=== PATIENT | male | born 1970 | race Caucasian/White ===

== ENCOUNTER 2019-07-20 21:31 | Emergency (ER) | payer SELFPAY ==
[~2019-07-20] VITALS: Ht 180 cm; Wt 88.5 kg
[2019-07-20 22:20] LABS: BASOPHILS % (AUTO) 0 % (0-10); EOSINOPHILS # (AUTO) 0.3 10^3/uL (0.0-0.3); EOSINOPHILS % (AUTO) 4 % (0-10); HEMATOCRIT 45 % (40-54); HEMOGLOBIN 15.4 G/DL (13.3-17.7); LYMPHOCYTES % (AUTO) 39 % (12-44); MEAN CORPUSCULAR HEMOGLOBIN 29 PG (25-34); MEAN CORPUSCULAR HGB CONC 34 G/DL (32-36); MEAN CORPUSCULAR VOLUME 84 FL (80-99); MEAN PLATELET VOLUME 9.4 FL (7.4-10.4); MONOCYTES # (AUTO) 0.9 X 10^3 (0.0-1.0); MONOCYTES % (AUTO) 12 % (0-12); NEUTROPHILS # (AUTO) 3.6 X 10^3 (1.8-7.8); NEUTROPHILS % (AUTO) 46 % (42-75); PLATELET COUNT 283 10^3/uL (130-400); RED CELL DISTRIBUTION WIDTH 13.5 % (10.0-14.5); WHITE BLOOD COUNT 7.8 10^3/uL (4.3-11.0)
[2019-07-20 22:27] LABS: INR 0.9 (0.8-1.4); PROTHROMBIN TIME PATIENT 12.6 SEC (12.2-14.7)
[2019-07-20 22:35] LABS: ALANINE AMINOTRANSFERASE 32 U/L (0-55); ALBUMIN 4.1 GM/DL (3.2-4.5); ALKALINE PHOSPHATASE 68 U/L (40-136); BILIRUBIN,TOTAL 0.3 MG/DL (0.1-1.0); BUN/CREATININE RATIO 14; CARBON DIOXIDE 23 MMOL/L (21-32); CHLORIDE 108 MMOL/L (98-107); CREATININE SERUM 1.07 MG/DL (0.60-1.30); GFR ESTIMATED > 60; GLUCOSE 91 MG/DL (70-105); MAGNESIUM 1.9 MG/DL (1.6-2.4); POTASSIUM 3.8 MMOL/L (3.6-5.0); SODIUM 141 MMOL/L (135-145); TOTAL PROTEIN 7.2 GM/DL (6.4-8.2)
--- NOTE | 2019-07-20 22:42 | ED Chest Pain ---
General Chief Complaint: Chest Pain Stated Complaint: METALLIC TASTE, SOA, LOW BK PAIN, POSS HBP Source: patient Exam Limitations: no limitations History of Present Illness Date Seen by Provider: Jul 20, 2019 Time Seen by Provider: 22:20 Initial Comments Patient arrives the ER with his girlfriend and chief complaint that today since about 10 AM he has been experiencing some fleeting seconds long chest pains in his mediastinum worse on deep inspiration as well as some backache and headache. He's had occasional nonproductive cough. He denies any nausea sweats fevers or chills. He has no history of coronary disease. No history of trauma. No history of lung disease. He does have a history of a TIA on [facility] and is supposed to be on lisinopril and aspirin. He occasionally takes 30 mg of lisinopril accuse told. The last 2 days he has taken it and noted his blood pressure to be high which is what prompted him to start taking his medicines again. He does not take aspirin. Is not on any other medicines statins or blood thinners. He does not follow with a local physician. He is not short of breath. He smokes about a quarter pack cigarettes a day and chews about a quarter of a can of tobacco a day. He has a remote history 15 months ago of using stimulant illicit drugs such as methamphetamines or cocaine. Allergies and Home Medications Allergies Coded Allergies: Penicillins (Verified Allergy, Unknown, 07/20/19) Patient Home Medication List Home Medication List Reviewed: Yes Review of Systems Review of Systems Constitutional: No chills, No diaphoresis EENTM: No Blurred Vision, No Double Vision Respiratory: Denies Cough, Denies Shortness of Air Cardiovascular: See HPI, Chest Pain; Denies Edema, Denies Irregular Heart Rate, Denies Lightheadedness, Denies Palpitations, Denies Syncope Gastrointestinal: Denies Abdominal Pain, Denies Constipated, Denies Nausea Genitourinary: Denies Burning, Denies Drainage Musculoskeletal: back pain; No joint pain Skin: No pruritus, No rash Psychiatric/Neurological: Denies Anxiety, Denies Depressed All Other Systems Reviewed Negative Unless Noted: Yes Past Qwytsku-Uqiafu-Iqbtai Hx Patient Social History Alcohol Use: Denies Use Recreational Drug Use: No Smoking Status: Never a Smoker Recent Foreign Travel: No Contact w/Someone Who Travel: No Physical Exam Vital Signs Vital Signs - First Documented Capillary Refill : Height, Weight, BMI Height: '" Weight: lbs. oz. kg; BMI Method: General Appearance: No Apparent Distress, WD/WN HEENT: PERRL/EOMI, Pharynx Normal, Moist Mucous Membranes Neck: Full Range of Motion, Normal Inspection Respiratory: Lungs Clear, Normal Breath Sounds, No Accessory Muscle Use, No Respiratory Distress Cardiovascular: Regular Rate, Rhythm, No Edema, Normal Peripheral Pulses Gastrointestinal: Normal Bowel Sounds, No Organomegaly Extremity: Normal Capillary Refill, Normal Inspection, No Pedal Edema Neurologic/Psychiatric: Alert, Oriented x3 Skin: Normal Color, Warm/Dry Progress/Results/Core Measures Results/Orders Lab Results Laboratory Tests Test 07/20/19 22:07 07/20/19 22:53 07/21/19 00:14 Range/Units White Blood Count 7.8 4.3-11.0 10^3/uL Red Blood Count 5.41 4.35-5.85 10^6/uL Hemoglobin 15.4 13.3-17.7 G/DL Hematocrit 45 40-54 % Mean Corpuscular Volume 84 80-99 FL Mean Corpuscular Hemoglobin 29 25-34 PG Mean Corpuscular Hemoglobin Concent 34 32-36 G/DL Red Cell Distribution Width 13.5 10.0-14.5 % Platelet Count 283 130-400 10^3/uL Mean Platelet Volume 9.4 7.4-10.4 FL Neutrophils (%) (Auto) 46 42-75 % Lymphocytes (%) (Auto) 39 12-44 % Monocytes (%) (Auto) 12 0-12 % Eosinophils (%) (Auto) 4 0-10 % Basophils (%) (Auto) 0 0-10 % Neutrophils # (Auto) 3.6 1.8-7.8 X 10^3 Lymphocytes # (Auto) 3.0 1.0-4.0 X 10^3 Monocytes # (Auto) 0.9 0.0-1.0 X 10^3 Eosinophils # (Auto) 0.3 0.0-0.3 10^3/uL Basophils # (Auto) 0.0 0.0-0.1 10^3/uL Prothrombin Time 12.6 12.2-14.7 SEC INR Comment 0.9 0.8-1.4 Activated Partial Thromboplast Time 36 H 24-35 SEC Sodium Level 141 135-145 MMOL/L Potassium Level 3.8 3.6-5.0 MMOL/L Chloride Level 108 H 98-107 MMOL/L Carbon Dioxide Level 23 21-32 MMOL/L Anion Gap 10 5-14 MMOL/L Blood Urea Nitrogen 15 7-18 MG/DL Creatinine 1.07 0.60-1.30 MG/DL Estimat Glomerular Filtration Rate > 60 BUN/Creatinine Ratio 14 Glucose Level 91 70-105 MG/DL Calcium Level 9.0 8.5-10.1 MG/DL Corrected Calcium 8.9 8.5-10.1 MG/DL Magnesium Level 1.9 1.6-2.4 MG/DL Total Bilirubin 0.3 0.1-1.0 MG/DL Aspartate Amino Transf (AST/SGOT) 21 5-34 U/L Alanine Aminotransferase (ALT/SGPT) 32 0-55 U/L Alkaline Phosphatase 68 40-136 U/L Myoglobin 57.0 10.0-92.0 NG/ML Troponin I < 0.028 < 0.028 <0.028 NG/ML Total Protein 7.2 6.4-8.2 GM/DL Albumin 4.1 3.2-4.5 GM/DL Urine Color YELLOW Urine Clarity SL CLOUDY Urine pH 7.0 5-9 Urine Specific [place] 1.025 H 1.016-1.022 Urine Protein NEGATIVE NEGATIVE Urine Glucose (UA) NEGATIVE NEGATIVE Urine Ketones NEGATIVE NEGATIVE Urine Nitrite NEGATIVE NEGATIVE Urine Bilirubin NEGATIVE NEGATIVE Urine Urobilinogen 1.0 < = 1.0 MG/DL Urine Leukocyte Esterase NEGATIVE NEGATIVE Urine RBC (Auto) NEGATIVE NEGATIVE Urine RBC RARE /HPF Urine WBC RARE /HPF Urine Squamous Epithelial Cells NONE /HPF Urine Crystals PRESENT H /LPF Urine Amorphous Sediment MOD [place]MA PHOSPHATE H /LPF Urine Bacteria TRACE /HPF Urine Casts PRESENT /LPF Urine Granular Casts RARE /LPF Urine Mucus NEGATIVE /LPF Urine Culture Indicated NO Urine Opiates Screen NEGATIVE NEGATIVE Urine Oxycodone Screen NEGATIVE NEGATIVE Urine Methadone Screen NEGATIVE NEGATIVE Urine Propoxyphene Screen NEGATIVE NEGATIVE Urine Barbiturates Screen NEGATIVE NEGATIVE Ur Tricyclic Antidepressants Screen NEGATIVE NEGATIVE Urine Phencyclidine Screen NEGATIVE NEGATIVE Urine Amphetamines Screen NEGATIVE NEGATIVE Urine Methamphetamines Screen NEGATIVE NEGATIVE Urine Benzodiazepines Screen NEGATIVE NEGATIVE Urine Cocaine Screen NEGATIVE NEGATIVE Urine Cannabinoids Screen NEGATIVE NEGATIVE Micro Results Microbiology 07/20/19 Influenza Types A,B Antigen (ALCIDES) - Final, Complete My Orders Orders - MYRNA COOLEY Cbc With Automated Diff (07/20/19 22:11) Magnesium (07/20/19 22:11) Chest 1 View, Ap/Pa Only (07/20/19 22:11) Ekg Tracing (07/20/19 22:11) Comprehensive Metabolic Panel (07/20/19 22:11) Myoglobin Serum (07/20/19 22:11) Protime With Inr (07/20/19 22:11) Partial Thromboplastin Time (07/20/19 22:11) O2 (07/20/19 22:11) Monitor-Rhythm Ecg Trace Only (07/20/19 22:11) Lipid Panel (07/21/19 06:00) Ed Iv/Invasive Line Start (07/20/19 22:11) Troponin I (07/20/19 22:11) Aspirin Chewable Tablet (Baby Aspirin Ch (07/20/19 22:45) Ua Culture If Indicated (07/20/19 22:43) Drug Screen Stat (Urine) (07/20/19 22:43) Influenza A And B Antigens (07/20/19 22:43) Ketorolac Injection (Toradol Injection) (07/20/19 23:30) Troponin I (07/21/19 00:01) Medications Given in ED Current Medications Medications Dose Ordered Sig/Jhoan Route Start Time Stop Time Status Last Admin Dose Admin Aspirin 324 mg ONCE ONCE PO 07/20/19 22:45 07/20/19 22:46 DC 07/20/19 22:45 324 MG Ketorolac Tromethamine 30 mg ONCE ONCE IVP 07/20/19 23:30 07/20/19 23:31 DC 07/20/19 23:36 30 MG Vital Signs/I&O 07/20/19 07/20/19 21:47 21:47 Temp 36.7 Pulse 97 Resp 20 B/P (MAP) 165/110 (128) O2 Delivery Room Air Room Air Progress Progress Note #1: Time: 22:38 Progress Note He is not presently having any pain in his pain seems to be reproduced by direct palpation or direct inspiration so it is more likely pleuritic or chest wall in nature. However he does have a history of a TIA with are not it was from vasospasms from drugs or from atherosclerosis is unknown. He denies ever having had a coronary angiogram. We'll get a react workup. He's not having any pain now so we'll just give him aspirin to chew and swallow. His pain comes back with given the nitroglycerin. We'll get a urine drug screen to look for stimulants that may contribute to pain. If his first troponin is negative we'll trial some ketorolac which would help with his headache as well as his chest wall pain/costochondritis. Chest x-ray would rule out a pneumonia or pneumothorax. He is not having any wheezing so bronchospasms unlikely. His oxygenation is fine and he is not having any subjective shortness of breath. He does not widened mediastinum and a AAA is unlikely. Well score for pulmonary embolism: 0.0 points; Low risk group: 1.3% chance of PE in an ED population. Perc criteria: 0 criteria; No need for further workup, as <2% chance of PE. Progress Note #2: Time: 23:29 Progress Note Initial labs, EKG, chest x-ray unrevealing. We'll give the patient some Toradol for his costochondritis versus pleurisy and headache as well as low back pain. We will obtain a two-hour delta troponin at midnight. His chest pains are fleeting, reproducible and started 10 AM so they're less likely to be related to angina. Initial ECG Impression Date: Jul 20, 2019 Initial ECG Impression Time: 22:16 Initial ECG Rate: 81 Initial ECG Rhythm: Normal Sinus Initial ECG Intervals: Normal Initial ECG Impression: Normal Initial ECG Comparisson: No Previous ECG Available Comment Left ventricular hypertrophy, normal sinus rhythm without ST elevation or depression. Diagnostic Imaging Diagonstic Imaging: Xray Plain Films/CT/US/NM/MRI: chest (1v) Comments No acute cardiopulmonary process on one view chest x-ray. Reviewed: Reviewed by Me Departure Impression Primary Impression: Chest wall pain Disposition: 01 HOME, SELF-CARE Condition: Stable Departure-Patient Inst. Decision time for Depature: 00:47 Referrals: NO,LOCAL PHYSICIAN (PCP) Primary Care Physician Patient Instructions: Chest Pain That Is Not Caused by the Heart (DC), LOCAL PHYSICIAN LIST Add. Discharge Instructions: Naproxen 500 mg twice a day for the next 1-2 weeks until your pain goes away. Follow-up with cardiology by calling for an appointment in the morning. Establish care with a primary care doctor. All discharge instructions reviewed with patient and/or family. Voiced understanding. Scripts Naproxen (Naprosyn) 500 Mg Tablet 500 MG PO BID, #30 TAB 0 Refills Prov: MYRNA COOLEY 07/21/19 MYRNA COOLEY Jul 20, 2019 22:41
[2019-07-20] MEDS ORDERED: ASPIRIN 81 MG CHEW (CHILDREN'S ASA) PO ONE (22:45)
[2019-07-20 22:57] LABS: BILIRUBIN,URINE NEGATIVE (NEGATIVE); COLOR,URINE YELLOW; GLUCOSE, URINE (UA) NEGATIVE (NEGATIVE); KETONES,URINE NEGATIVE (NEGATIVE); LEUKOCYTE ESTERASE ,URINE NEGATIVE (NEGATIVE); NITRITE,URINE NEGATIVE (NEGATIVE); PROTEIN,URINE NEGATIVE (NEGATIVE)
[2019-07-20 23:02] LABS: CLARITY,URINE SL CLOUDY
[2019-07-20 23:05] LABS: AMORPHOUS SEDIMENT,UR MOD AMOR PHOSPHATE /LPF; BACTERIA,URINE TRACE /HPF; GRANULAR CASTS,URINE RARE /LPF; RBC,URINE RARE /HPF; WBC,URINE RARE /HPF
[2019-07-20 23:07] LABS: AMPHETAMINE SCREEN, URINE NEGATIVE (NEGATIVE); BARBITURATE SCREEN URINE NEGATIVE (NEGATIVE); BENZODIAZEPINES SCREEN URINE NEGATIVE (NEGATIVE); CANNABINOID SCREEN, URINE NEGATIVE (NEGATIVE); COCAINE SCREEN URINE NEGATIVE (NEGATIVE); METHADONE STAT NEGATIVE (NEGATIVE); METHAMPHETAMINE SCREEN URINE S NEGATIVE (NEGATIVE); OPIATE SCREEN URINE NEGATIVE (NEGATIVE); OXYCODONE STAT NEGATIVE (NEGATIVE); PROPOXYPHENE STAT NEGATIVE (NEGATIVE); TRICYCLIC ANTIDEPRESSANTS SCRE NEGATIVE (NEGATIVE)
[2019-07-20] MEDS ORDERED: KETOROLAC 30 MG/ML VIAL IVP ONE (23:30)
[2019-07-21] MEDS ORDERED: NAPR-1071 PO (00:51)
[2019-07-21 01:07] VITALS: BP 166/100
--- NOTE | 2019-07-21 07:05 | Diagnostic Imaging Report ---
EXAMINATION: Chest radiograph, portable AP view. DATE: 07/20/2019 10:33 PM hours. INDICATION: 49-year-old male, chest pain. COMPARISON: None. FINDINGS: Heart size and mediastinal contours are unremarkable. There is no identified pneumothorax. There is no large pleural effusion. There is no identified focal airspace consolidation. IMPRESSION: No identified acute cardiopulmonary abnormality. Dictated by: Dictated on workstation # [id number]
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
--- OUTSIDE RECORDS SUMMARY | 2019-07-28 22:15 | XMS REPORT ---
Author Author ZACH BLACKWELL Organization Unknown Address Unknown Phone Unavailable Care Team Providers Care Docketing Specialist Name Role Phone UNASSIGNED DOCTOR MD MEGAN DOCTOR PP [phone] Reason For Visit Reason for Visit from 01/05/2017 2:00 PM:* Pt Stated Reason for Adm : HTN, right side numbness Chief Complaint RT SIDE WEAKNESS Social History Social History from 01/06/2017 10:07 AM:* Tobacco Use? : Current Everyday Smoker Social History from 01/05/2017 6:40 PM:* Tobacco Use? : Current Everyday Smoker Social History from 01/05/2017 2:00 PM:* Tobacco Use? : Current Everyday Smoker Functional Status Functional Status from 01/06/2017 8:48 AM:* LOC : Alert * Oriented To : Person,Place,Time,Event * Weight Bearing Status : Full * Assist Level : Independent * # Assists : Independent Functional Status from 01/06/2017 8:28 AM:* # Assists : Independent Functional Status from 01/05/2017 8:30 PM:* LOC : Alert * Oriented To : Person,Place,Time,Event * Weight Bearing Status : Full * Assist Level : Partial * # Assists : 1 Functional Status from 01/05/2017 2:00 PM:* Weight Bearing Status : Full * Assist Level : Partial * # Assists : 1 Vital Signs Hospital Vital Signs from 01/06/2017 10:43 AM:* Height : 6/0 ft,in * Temperature : 96.8 F * Pulse : 52 * Respirations : 20 * BP : 138/84 Hospital Vital Signs from 01/06/2017 10:26 AM:* Height : 6/0 ft,in * Temperature : 95.8 F * Pulse : 53 * Respirations : 20 * BP : 182/96 Hospital Vital Signs from 01/06/2017 8:48 AM:* Heart Rate : 53 Hospital Vital Signs from 01/06/2017 7:20 AM:* Height : 6/0 ft,in * Temperature : 97.4 F * Pulse : 56 * Respirations : 20 * BP : 130/84 Hospital Vital Signs from 01/06/2017 3:26 AM:* Weight : 80.7/ kg * Height : 6/0 ft,in * Temperature : 97.4 F * Pulse : 51 * Respirations : 20 * BP : 141/76 Hospital Vital Signs from 01/05/2017 10:43 PM:* Height : 6/0 ft,in * Temperature : 97.7 F * Pulse : 51 * Respirations : 20 * BP : 120/75 Hospital Vital Signs from 01/05/2017 8:30 PM:* Heart Rate : 46 Hospital Vital Signs from 01/05/2017 6:33 PM:* Height : 6/0 ft,in * Temperature : 97.0 F * Pulse : 60 * Respirations : 20 * BP : 129/75 Hospital Vital Signs from 01/05/2017 5:00 PM:* Heart Rate : 66 * Resp Rate : 18 * Systolic BP (mmHg) : 103 * Diastolic BP (mmHg) : 72 * Mean BP (mmHg) : 85 * O2 Saturation (%) : 97 Hospital Vital Signs from 01/05/2017 4:00 PM:* Heart Rate : 73 * Systolic BP (mmHg) : 137 * Diastolic BP (mmHg) : 90 * O2 Saturation (%) : 94 Hospital Vital Signs from 01/05/2017 3:15 PM:* Heart Rate : 64 * Resp Rate : 19 * O2 Saturation (%) : 97 Hospital Vital Signs from 01/05/2017 3:00 PM:* Temp : 97.4 * Heart Rate : 66 * Resp Rate : 18 * Systolic BP (mmHg) : 144 * Diastolic BP (mmHg) : 111 * Mean BP (mmHg) : 131 * O2 Saturation (%) : 98 Hospital Vital Signs from 01/05/2017 2:45 PM:* Heart Rate : 52 * Resp Rate : 11 * Systolic BP (mmHg) : 144 * Diastolic BP (mmHg) : 100 * Mean BP (mmHg) : 120 * O2 Saturation (%) : 99 Hospital Vital Signs from 01/05/2017 2:30 PM:* Heart Rate : 57 * Resp Rate : 7 * O2 Saturation (%) : 98 Hospital Vital Signs from 01/05/2017 2:15 PM:* Heart Rate : 49 * Resp Rate : 18 * Systolic BP (mmHg) : 163 * Diastolic BP (mmHg) : 102 * O2 Saturation (%) : 97 Hospital Vital Signs from 01/05/2017 2:00 PM:* Weight : 79.0/ kg * Height : 6/0 ft,in * Heart Rate : 57 * Resp Rate : 34 * Systolic BP (mmHg) : 165 * Diastolic BP (mmHg) : 101 * O2 Saturation (%) : 97 Hospital Vital Signs from 01/05/2017 1:55 PM:* Temp : 97.4 * Heart Rate : 53 * Resp Rate : 11 * Systolic BP (mmHg) : 152 * Diastolic BP (mmHg) : 97 * O2 Saturation (%) : 97 Results Chemistry from 01/06/2017 4:32 AMSODIUM 139 MMOL/L (136-145 MMOL/L) POTASSIUM 4.1 MMOL/L (3.5-5.1 MMOL/L) CHLORIDE 106 MMOL/L (98-107 MMOL/L) TCO2 26.7 MMOL/L (21.0-32.0 MMOL/L) *ANION GAP 6.3 MMOL/L L (8.0-16.0 MMOL/L) BUN 18 MG/DL (7-18 MG/DL) CREATININE 0.96 MG/DL (0.70-1.30 MG/DL) *BUN/CREATININE RATIO 18.8 H (9.1-17.0 ) GLUCOSE 113 MG/DL H (65-99 MG/DL) *GFR EST NON AFR PAKIST[place] >90 ML/MIN (Reference Range: not available) *GFR EST AFR AMER >90 ML/MIN (Reference Range: not available) CALCIUM 8.4 MG/DL L (8.5-10.1 MG/DL) CHOLESTEROL 168 MG/DL (50-199 MG/DL) TRIGLYCERIDES 131 MG/DL (0-149 MG/DL) HDL CHOLESTEROL 39 MG/DL L (40-60 MG/DL) *LDL (CALCULATED) CHOL 103 MG/DL H (0-99 MG/DL) Chemistry from 01/06/2017 12:47 AMTROPONIN-I <0.017 NG/ML (0.000-0.056 NG/ML) Chemistry from 01/05/2017 6:08 PMTROPONIN-I <0.017 NG/ML (0.000-0.056 NG/ML) Hematology from 01/06/2017 4:32 AMWBC 6.8 X10e3/UL (3.6-11.2 X10e3/UL) RBC 5.22 X10e6/UL (4.06-5.63 X10e6/UL) HEMOGLOBIN 15.0 G/DL (12.5-16.3 G/DL) HEMATOCRIT 44.4 % (36.7-47.1 %) *MCV 85.1 FL (80.0-100.0 FL) *MCH 28.8 PG (27.0-33.0 PG) *MCHC 33.9 G/DL (32.0-36.0 G/DL) *RDW 14.0 % (12.3-17.0 %) *RDWSD 42.0 (37.1-47.8 ) PLATELET 208 X10e3/UL (159-386 X10e3/UL) *MPV 8.4 FL (7.4-10.4 FL) MRI from 01/05/2017 3:57 PMMRI BRAIN W/O_W/CONTRAST History: Weakness . Dysphasia Technique: Pre and Post contrast images were performed after the administration of 15 milliliters of Prohance intravenous contrast. Priors: CT head same day Findings: The ventricles, sulci, and cisterns appear within normal limits. There is no midline shift. Normal vascular flow voids are seen at the skull base. The zamora-white matter differentiation is within normal limits. Scattered punctate FLAIR hyperintensities throughout the bilateral cerebral white matter, predominantly periventricular consistent with nonspecific white matter disease. There is no focus of restricted diffusion seen to suggest acute stroke. No space occupying lesions seen. The visualized paranasal sinuses and mastoid air cells are unremarkable. There is no evidence of suspicious enhancement. Impression: Mild nonspecific white matter disease likely secondary to chronic microvascular ischemic disease. No acute ischemia, enhancing mass, or midline shift. Electronically signed by: ALFA CONTRERAS Dictated: 01/06/2017 08:04 (Reference Range: not available) Problems Encounter Diagnosis * Amphetamine Abuse Status:Active. * Attacks of Weakness Status:Active. * Difficulty Speaking Status:Active. * Fall Risk Status:Active. * Headache Status:Active. * Hypertensive Disorder Status:Active. * Mobility Impairment Status:Active. * Numbness Status:Active. * Numbness of Face Status:Active. * Tobacco Use Status:Active. * Transient Cerebral Ischemia Status:Active. Additional Problems * Acute Pain Comment:Problem resolved by [facility] Workflow upon Discharge, Status:Resolved. * Acute Renal Failure Syndrome Comment:Problem resolved by [facility] Workflow upon Discharge, Status:Resolved. * Infection Risk Comment:Problem resolved by [facility] Workflow upon Discharge, Status:Resolved. * Leukocytosis Comment:Problem resolved by [facility] Workflow upon Discharge, Status:Resolved. * Low Back Pain Comment:Problem resolved by [facility] Workflow upon Discharge, Status:Resolved. * Rhabdomyolysis Comment:Problem resolved by [facility] Workflow upon Discharge, Status:Resolved. Encounters Encounter Diagnosis * Amphetamine Abuse Status:Active. * Attacks of Weakness Status:Active. * Difficulty Speaking Status:Active. * Fall Risk Status:Active. * Headache Status:Active. * Hypertensive Disorder Status:Active. * Mobility Impairment Status:Active. * Numbness Status:Active. * Numbness of Face Status:Active. * Tobacco Use Status:Active. * Transient Cerebral Ischemia Status:Active. Plan of Care Follow-up Appointments from 01/06/2017 10:07 AM:* #1 Office appointment: : Follow up with long-term physician in 7 days. Treatment Plan from 01/05/2017 4:17 PM:* Care Management Note : BODY,TD,TH,BUTTON,INPUT,SELECT,TEXTAREA{FONT-SIZE: 10pt; FONT-FAMILY: [place],Helvetica; COLOR: black;} P,DIV,UL,OL,BLOCKQUOTE{MARGIN-BOTTOM: 0px; MARGIN-TOP: 0px;} BODY{MARGIN: 5px;} Patient admitted outpatient observation to ICU after presenting to ED in police custody for c/o R) side numbness and weakness since last night. Patient reports that it last an hour or two them g oes away. Patient has difficultly speaking for the past 2.5 hrs and reports ROMAN. Hypertensive on arrival BP: 192/131. Labetalol 10mg IVP x2 in ED for HTN. BNP: 24. CT of head: negative. Troponin: negative. Dr. Andrade consulted for Neurology. MRI, Carotid Doppler, and ECHO ordered. Suspected TIA. Patient will remain outpatient observation at this time. Procedures No relevant procedures performed. Immunizations No immunizations administered or ordered. Hospital Course Hospital Discharge Instructions How to care for yourself at home from 01/06/2017 10:07 AM:* Discharge Activity : Activity as tolerated,May Shower * Discharge Diet : Diet as tolerated * Discharge Diet: : Low Fat, Low Cholesterol. No added salt * Call your doctor if: : Fever over 101 F or severe chills,Chest pain or other unexplained symptoms,Tingling or numbness develops,A sudden increase or decrease in weight,You have persistent or worsening symptoms,If you have Heart Failure and you gain 3 pounds within 1 week or your symptoms worsen. (Weigh at home tomorrow morning) * Specific Discharge Teaching Instructions provided: : Yes * Specific Discharge Teaching Instructions Reviewed: : Cardiac Diet * Discharge on Warfarin : No Allergies, Adverse Reactions, Alerts This section is volunteer patient representative of the current allergy information, at the time o f the CCD generation. In the case of regeneration of the CCD, the allergy inform ation may not reflect the state of known allergies at the time of the CCD's subj ect visit. * Penicillins causes unspecified. * No Latex Allergy. * No IV Contrast Allergy. * No Known Food Allergies. Medication It is the responsibility of the patient or patient volunteer patient representative to confirm the list of medications with either the patient's personal care provider or [facility] to ensure the patient has an appropriate list of medications to take at home. Discharge medications New medications* aspirin (Enteric Coated Aspirin) 81 mg tablet,delayed release (DR/EC), Ordered By: LUISA COOK MD Directions: 1 tablet oral daily every morning * lisinopril (Prinivil) 10 mg Tablet, Ordered By: LUISA COOK MD Directions: 1 tablet oral daily * atorvastatin (Lipitor) 10 mg Tablet, Ordered By: LUISA COOK MD Directions: 1 tablet oral daily at bedtime Stopped medications* None
--- OUTSIDE RECORDS SUMMARY | 2019-07-28 22:15 | XMS REPORT ---
Author Author ZACH BLACKWELL Organization Unknown Address Unknown Phone Unavailable Care Team Providers Care Tile Molder Hand Name Role Phone MD BEST GREGORY PP Reason For Visit Chief Complaint SMASHED HAND Social History Functional Status Vital Signs Results Chemistry from 05/12/2017 11:00 AMSODIUM 135 MMOL/L L (136-145 MMOL/L) POTASSIUM 3.6 MMOL/L (3.5-5.1 MMOL/L) CHLORIDE 100 MMOL/L (98-107 MMOL/L) TCO2 27.5 MMOL/L (21.0-32.0 MMOL/L) *ANION GAP 7.5 MMOL/L L (8.0-16.0 MMOL/L) BUN 12 MG/DL (7-18 MG/DL) CREATININE 0.90 MG/DL (0.70-1.30 MG/DL) *BUN/CREATININE RATIO 13.3 (9.1-17.0 ) GLUCOSE 110 MG/DL H (65-99 MG/DL) *GFR EST NON AFR BRITISH >90 ML/MIN (Reference Range: not available) *GFR EST AFR AMER >90 ML/MIN (Reference Range: not available) CALCIUM 8.5 MG/DL (8.5-10.1 MG/DL) C-REACTIVE PROTEIN 3.26 MG/DL H (0.00-0.30 MG/DL) CK 86 U/L (39-308 U/L) LACTIC ACID 1.8 mmol/L H (0.9-1.7 mmol/L) Hematology from 05/12/2017 11:00 AMWBC 11.8 X10e3/UL H (3.6-11.2 X10e3/UL) RBC 5.58 X10e6/UL (4.06-5.63 X10e6/UL) HEMOGLOBIN 16.1 G/DL (12.5-16.3 G/DL) HEMATOCRIT 48.3 % H (36.7-47.1 %) *MCV 86.5 FL (80.0-100.0 FL) *MCH 28.8 PG (27.0-33.0 PG) *MCHC 33.3 G/DL (32.0-36.0 G/DL) *RDW 14.2 % (12.3-17.0 %) *RDWSD 42.9 (37.1-47.8 ) PLATELET 230 X10e3/UL (159-386 X10e3/UL) *MPV 7.6 FL (7.4-10.4 FL) AUTOMATED DIFF PERFORMED (Reference Range: not available) SEGS 68.1 % (Reference Range: not available) *LYMPHOCYTES 17.9 % (Reference Range: not available) *MONOCYTES 11.7 % (Reference Range: not available) *EOSINOPHILS 1.7 % (Reference Range: not available) *BASOPHILS 0.6 % (Reference Range: not available) *ABSOLUTE NEUTROPHILS 8.10 X10e3/UL H (1.80-7.80 X10e3/UL) *ABSOLUTE LYMPHOCYTES 2.10 X10e3/UL (1.00-3.00 X10e3/UL) *ABSOLUTE MONOCYTES 1.40 X10e3/UL H (0.30-1.00 X10e3/UL) *ABSOLUTE EOSINOPHILS 0.20 X10e3/UL (0.00-0.50 X10e3/UL) *ABSOLUTE BASOPHILS 0.10 X10e3/UL (0.00-0.20 X10e3/UL) SED RATE 7 MM/HR (0-15 MM/HR) Microbiology from 05/12/2017 11:00 AM* CULTURE BLOOD (Preliminary Result) Specimen Number: [id number] Sample Collection Date/Time: 05/12/2017 11:00 AM Specimen Source: Blood PERIPHRL CULTURE BLOOD: No growth after 24 hours of incubation, testing to continue for an additional 96 hours. Microbiology from 05/12/2017 10:50 AM* CULTURE BLOOD (Preliminary Result) Specimen Number: [id number] Sample Collection Date/Time: 05/12/2017 10:50 AM Specimen Source: Blood PERIPHRL CULTURE BLOOD: No growth after 24 hours of incubation, testing to continue for an additional 96 hours. Blood Bank from 05/12/2017 11:00 AMANTIBODY SCREEN (Indirect Jeb) NEG (Reference Range: not available) *ABO Group A (Reference Range: not available) RH TYPE POS (Reference Range: not available) DX Radiology from 05/12/2017 10:45 AMWRIST LEFT 3 VIEWS History: trauma, infection . Technique: 3 view wrist Findings: There is no acute fracture or subluxation. The distal radius and ulna are intact. The carpals are normally aligned. Impression: Unremarkable radiographs of the left wrist. Electronically signed by: Christopher Miller MD Dictated: 05/12/2017 12:03 (Reference Range: not available) DX Radiology from 05/12/2017 10:42 AMHAND LEFT 3 VIEWS History: trauma, infection . Technique: 3view hand Priors: None. Findings: There is no fracture. There is no dislocation. The distal radius and ulna appear intact. The carpal bones and joint spaces appear well maintained. There is moderate soft tissue swelling of the hand. Impression: Unremarkable radiographs of the left hand. Electronically signed by: Christopher Miller MD Dictated: 05/12/2017 12:03 (Reference Range: not available) Problems Encounter Diagnosis No relevant problems exist. Additional Problems * Acute Pain Comment:Problem resolved by [facility] Workflow upon Discharge, Status:Resolved. * Acute Renal Failure Syndrome Comment:Problem resolved by [facility] Workflow upon Discharge, Status:Resolved. * Amphetamine Abuse Comment:Problem resolved by [facility] Workflow upon Discharge, Status:Resolved. * Attacks of Weakness Comment:Problem resolved by [facility] Workflow upon Discharge, Status:Resolved. * Difficulty Speaking Comment:Problem resolved by [facility] Workflow upon Discharge, Status:Resolved. * Fall Risk Comment:Problem resolved by [facility] Workflow upon Discharge, Status:Resolved. * Fall Risk Comment:Problem resolved by [facility] Workflow upon Discharge, Status:Resolved. * Headache Comment:Problem resolved by [facility] Workflow upon Discharge, Status:Resolved. * Hypertensive Disorder Comment:Problem resolved by [facility] Workflow upon Discharge, Status:Resolved. * Infection Risk Comment:Problem resolved by [facility] Workflow upon Discharge, Status:Resolved. * Leukocytosis Comment:Problem resolved by [facility] Workflow upon Discharge, Status:Resolved. * Low Back Pain Comment:Problem resolved by [facility] Workflow upon Discharge, Status:Resolved. * Mobility Impairment Comment:Problem resolved by [facility] Workflow upon Discharge, Status:Resolved. * Numbness Comment:Problem resolved by [facility] Workflow upon Discharge, Status:Resolved. * Numbness of Face Comment:Problem resolved by [facility] Workflow upon Discharge, Status:Resolved. * Rhabdomyolysis Comment:Problem resolved by [facility] Workflow upon Discharge, Status:Resolved. * Tobacco Use Comment:Problem resolved by [facility] Workflow upon Discharge, Status:Resolved. * Tobacco Use Comment:Problem resolved by [facility] Workflow upon Discharge, Status:Resolved. * Transient Cerebral Ischemia Comment:Problem resolved by [facility] Workflow upon Discharge, Status:Resolved. Encounters Encounter Diagnosis No relevant problems exist. Plan of Care Procedures No relevant procedures performed. Immunizations No immunizations administered or ordered. Hospital Course Hospital Discharge Instructions Allergies, Adverse Reactions, Alerts This section is customer engagement representative of the current allergy information, at the time o f the CCD generation. In the case of regeneration of the CCD, the allergy inform ation may not reflect the state of known allergies at the time of the CCD's subj ect visit. * Penicillins causes unspecified. * Latex Allergy has not been assessed. * IV Contrast Allergy has not been assessed. * No Known Food Allergies. Medication Medication reconciliation has not been performed.
--- OUTSIDE RECORDS SUMMARY | 2019-07-28 22:15 | XMS REPORT ---
Author Author ZACH BLACKWELL Organization Unknown Address Unknown Phone Unavailable Care Team Providers Care Turbine Operator Name Role Phone MD BEST GREGORY PP Reason For Visit Chief Complaint LEFT HAND INFECTION Social History Functional Status Vital Signs Results Problems Encounter Diagnosis No relevant problems exist. [...] Allergies, Adverse Reactions, Alerts This section is videotape sales representative of the current allergy information, at [...]
--- OUTSIDE RECORDS SUMMARY | 2019-07-28 22:15 | XMS REPORT | Referral Summary ---
Author Author [facility] Organization [facility] Address Unknown Phone Unavailable Care Team Providers Care Waterworks Chief Engineer Name Role Phone Homar Smiley PCP Encounter VC Date(s): 05/22/17 - 05/22/17 [facility] [address] [place] [address] [phone] Discharge Disposition: 30-Still a Patient Vital Signs No data available for this section Problem List Condition Effective Dates Status Health Status Informan t Acute Active pain(Confirmed) HTN Active patient (hypertension)(Confi rmed) Impaired skin Active integrity(Confirmed) 1 TIA (transient Active patient ischemic attack)(Confirmed) Hepatitis Active patient C(Confirmed) 1Problem added automatically by system based on initiation of Impaired Skin Integrity Plan of Care Allergies, Adverse Reactions, Alerts Substance Reaction Severity Status penicillin Active Medications Aspir 81 81 mg, Oral, Daily, 0 Refill(s) Start Date: 05/12/17 Status: Ordered atorvastatin 10 mg oral tablet 10 mg 1 tabs, Oral, Bedtime (once a day), # 30 tabs, 0 Refill(s) Start Date: 05/12/17 Status: Ordered Ceftin 500 mg oral tablet 500 mg 1 tabs, Oral, BID, x14 days, Started on 05/17/17, 0 Refill(s) Start Date: 05/22/17 Status: Ordered citalopram 20 mg oral tablet 20 mg 1 tabs, Oral, Daily, # 30 tabs, 0 Refill(s) Start Date: 05/12/17 Status: Ordered Flagyl 500 mg oral tablet 500 mg 1 tabs, Oral, q12hr, X 14 days, # 28 tabs, 0 Refill(s), Pharmacy: [id number], 1 tabs Oral q12hr,x14 days Start Date: 05/17/17 Stop Date: 05/31/17 Status: Ordered HYDROcodone-acetaminophen 5 mg-325 mg oral tablet 1-2 tabs, Oral, q6hr, Pain Moderate (4-6), # 33 tabs, 0 Refill(s) Start Date: 05/17/17 Stop Date: 05/23/17 Status: Ordered lisinopril 20 mg oral tablet 20 mg 1 tabs, Oral, Daily, # 30 tabs, 0 Refill(s) Start Date: 05/12/17 Status: Ordered multivitamin 1 tabs, Oral, Daily, 0 Refill(s) Start Date: 05/12/17 Status: Ordered Nitrostat 0.4 mg sublingual tablet 0.4 mg 1 tabs, SubLingual, q5min, as needed for chest pain, not to exceed 3 dose s/15 min--if pain persists, seek medical attention, # 100 tabs, 0 Refill(s) Start Date: 05/12/17 Status: Ordered Results No data available for this section Immunizations No data available for this section Procedures Procedure Date Related Diagnosis Body Site Incision and Drainage Upper Extremity (Left)1 7 1auto-populated from documented surgical case Social History Social History Type Response Smoking Status 5-9 cigarettes (between 1/4 to 1/2 pack)/day in last 30 days; Type: Cigarettes; Tobacco use per day: Betwee n 1/4 pack and 1/2 pack; Number of years: 30; entered on: 05/12/17 Assessment and Plan No data available for this section
--- OUTSIDE RECORDS SUMMARY | 2019-07-28 22:15 | XMS REPORT ---
Author Author ZACH BLACKWELL Organization Unknown Address Unknown Phone Unavailable Care Team Providers Care Local Company Truck Driver Name Role Phone MD BEST GREGORY PP Reason For Visit Chief Complaint CHEST PAIN Social History Functional Status Vital Signs Results Chemistry from 02/03/2017 4:00 AMSODIUM 140 MMOL/L (136-145 MMOL/L) POTASSIUM 3.9 MMOL/L (3.5-5.1 MMOL/L) CHLORIDE 105 MMOL/L (98-107 MMOL/L) TCO2 28.6 MMOL/L (21.0-32.0 MMOL/L) *ANION GAP 6.4 MMOL/L L (8.0-16.0 MMOL/L) BUN 19 MG/DL H (7-18 MG/DL) CREATININE 1.21 MG/DL (0.70-1.30 MG/DL) *BUN/CREATININE RATIO 15.7 (9.1-17.0 ) GLUCOSE 100 MG/DL H (65-99 MG/DL) *GFR EST NON AFR MALAYSIAN 72 ML/MIN (Reference Range: not available) *GFR EST AFR AMER 83 ML/MIN (Reference Range: not available) CALCIUM 8.9 MG/DL (8.5-10.1 MG/DL) BILIRUBIN TOTAL 0.40 MG/DL (0.20-1.00 MG/DL) TOTAL PROTEIN 7.5 GM/DL (6.4-8.2 GM/DL) ALBUMIN 4.0 GM/DL (3.4-5.0 GM/DL) *GLOBULIN 3.5 GM/DL (2.3-3.5 GM/DL) *A/G RATIO 1.1 MG/DL L (1.5-2.2 MG/DL) ALK PHOS 74 U/L (46-116 U/L) ALT (SGPT) 50 U/L (14-59 U/L) AST (SGOT) 25 U/L (15-37 U/L) TROPONIN-I <0.017 NG/ML (0.000-0.056 NG/ML) B-TYPE NATRIURETIC PROTEIN 29 PG/ML (1-100 PG/ML) Hematology from 02/03/2017 4:00 AMWBC 8.2 X10e3/UL (3.6-11.2 X10e3/UL) RBC 5.40 X10e6/UL (4.06-5.63 X10e6/UL) HEMOGLOBIN 15.4 G/DL (12.5-16.3 G/DL) HEMATOCRIT 46.0 % (36.7-47.1 %) *MCV 85.3 FL (80.0-100.0 FL) *MCH 28.5 PG (27.0-33.0 PG) *MCHC 33.4 G/DL (32.0-36.0 G/DL) *RDW 13.8 % (12.3-17.0 %) *RDWSD 41.1 (37.1-47.8 ) PLATELET 255 X10e3/UL (159-386 X10e3/UL) *MPV 7.9 FL (7.4-10.4 FL) AUTOMATED DIFF PERFORMED (Reference Range: not available) SEGS 62.2 % (Reference Range: not available) *LYMPHOCYTES 25.7 % (Reference Range: not available) *MONOCYTES 9.6 % (Reference Range: not available) *EOSINOPHILS 1.8 % (Reference Range: not available) *BASOPHILS 0.7 % (Reference Range: not available) *ABSOLUTE NEUTROPHILS 5.10 X10e3/UL (1.80-7.80 X10e3/UL) *ABSOLUTE LYMPHOCYTES 2.10 X10e3/UL (1.00-3.00 X10e3/UL) *ABSOLUTE MONOCYTES 0.80 X10e3/UL (0.30-1.00 X10e3/UL) *ABSOLUTE EOSINOPHILS 0.10 X10e3/UL (0.00-0.50 X10e3/UL) *ABSOLUTE BASOPHILS 0.10 X10e3/UL (0.00-0.20 X10e3/UL) Coagulation from 02/03/2017 4:00 AM*PROTHROMBIN TIME 10.8 SECONDS (9.4-11.5 SECONDS) *INR 1.0 (0.9-1.1 ) PARTIAL THROMBOPLASTIN TIME 29.1 SECONDS (23.0-31.0 SECONDS) D-DIMER <0.19 MG/L FEU (0.00-0.50 MG/L FEU) DX Radiology from 02/03/2017 4:18 AMCHEST 1 VIEW History: chest pain Priors: None. Findings: The cardiac silhouette and pulmonary vasculature are within normal limits. There are no acute infiltrates or effusions. Impression: Negative chest Electronically signed by: Oscar Jones MD Dictated: 02/03/2017 11:55 (Reference Range: not available) Problems Encounter Diagnosis [...] Allergies, Adverse Reactions, Alerts This section is patient account representative of the current allergy information, at [...]
--- OUTSIDE RECORDS SUMMARY | 2019-07-28 22:15 | XMS REPORT | Referral Summary ---
Author Author [facility] Organization [facility] Address Unknown Phone Unavailable Care Team Providers Care Supervisor Home Economics Name Role Phone Homar Smiley PCP Encounter VC Date(s): 05/22/17 - 05/28/17 [facility] [address] [place] [address] Discharge Diagnosis: Joint infection Discharge Disposition: 01-Home or Self Care Attending Physician: Alex Allen MD Admitting Physician: Brayan Chavarria DO Vital Signs Most recent to 1 oldest [Reference Range]: Temperature Oral 36.5 degC [35.8-37.3 degC] (05/28/17 8:00 AM) Temperature Skin 36.4 degC [36-37 degC] (05/23/17 10:25 AM) Temperature Temporal 36.1 degC Artery [36.3-37.8 *LOW* degC] (05/23/17 1:15 PM) Peripheral Pulse 64 bpm Rate [60-100 bpm] (05/28/17 8:00 AM) Heart Rate Monitored 77 bpm [60-100 bpm] (05/25/17 4:00 AM) Respiratory Rate 16 br/min [14-20 br/min] (05/28/17 8:00 AM) Blood Pressure 133/89 mmHg [90-140/60-90 mmHg] (05/28/17 8:00 AM) Mean Arterial 106 mmHg Pressure, Cuff (05/24/17 5:12 AM) SpO2 97 % (05/28/17 8:00 AM) Remote Telemetry Interrupted 1 (05/24/17 8:00 AM) 1Result Comment: refused to wear at this time. will notified doctor. Problem List Condition Effective Dates Status Health Status Informan t Acute Active pain(Confirmed) HTN Active patient (hypertension)(Confi rmed) Impaired skin Active integrity(Confirmed) 1 TIA (transient Active patient ischemic attack)(Confirmed) Hepatitis Active patient C(Confirmed) 1Problem added automatically by system based on initiation of Impaired Skin Integrity Plan of Care Allergies, Adverse Reactions, Alerts Substance Reaction Severity Status penicillin UNKNOWN Active Medications Aspir 81 81 mg, Oral, Daily, 0 Refill(s) Start Date: 05/12/17 Status: Ordered atorvastatin 10 mg oral tablet 10 mg 1 tabs, Oral, Bedtime (once a day), # 30 tabs, 0 Refill(s) Start Date: 05/12/17 Status: Ordered cefdinir 300 mg oral capsule 300 mg 1 caps, Oral, q12hr, X 14 days, # 28 caps, 0 Refill(s) Start Date: 05/26/17 Stop Date: 06/09/17 Status: Ordered citalopram 20 mg oral tablet 20 mg 1 tabs, Oral, Daily, # 30 tabs, 0 Refill(s) Start Date: 05/12/17 Status: Ordered Flagyl 500 mg oral tablet 500 mg 1 tabs, Oral, q12hr, X 14 days, # 28 tabs, 0 Refill(s) Start Date: 05/26/17 Stop Date: 06/09/17 Status: Ordered lisinopril 20 mg oral tablet [...] 0 Refill(s) Start Date: 05/12/17 Status: Ordered oxyCODONE-acetaminophen 5 mg-325 mg oral tablet 1 tabs, Oral, q4hr, Pain Moderate (4-6), # 12 tabs, 0 Refill(s) Start Date: 05/26/17 Stop Date: 05/30/17 Status: Ordered Results Hematology Most recent to 1 oldest [Reference Range]: WBC [4.8-10.8 10.5 10*3/uL 10*3/uL] (05/26/17 7:27 AM) RBC [4.60-6.20] 5.07 (05/26/17 7:27 AM) Hgb [14.0-18.0 14.9 gm/dL gm/dL] (05/26/17 7:27 AM) Hct [42.0-52.0 %] 45.9 % (05/26/17: AM) MCV [82.0-99.0 fL] 90.5 fL (05/26/17: AM) MCH [27.0-32.0 pg] 29.4 pg (05/26/17: AM) MCHC [32.0-36.0 32.5 gm/dL gm/dL] (05/26/17:27 AM) RDW [11.5-14.5 %] 13.4 % (05/26/17: AM) Platelet [150-400 466 10*3/uL 10*3/uL] *HI* (05/26/17 7:27 AM) MPV [9.4-12.3 fL] 9.0 fL *LOW* (05/26/17 7:27 AM) Immature 0.4 % Granulocytes (05/26/17 7:27 AM) [0.0-1.0 %] Neutrophils [51-75 53 % %] (05/26/17 7:27 AM) Lymphocytes [20-46 34 % %] (05/26/17 7:27 AM) Monocytes [4-11 %] 10 % (05/26/17 7:27 AM) Eosinophils [0-4 %] 3 % (05/26/17 7:27 AM) Basophils [0-2 %] 1 % (05/26/17 7:27 AM) Neutro Absolute 5.53 [1.90-7.00] (05/26/17 7:27 AM) Lymph Absolute 3.58 [0.80-3.30] *HI* (05/26/17 7:27 AM) [place] Absolute 1.01 [0.30-1.00] *HI* (05/26/17 7:27 AM) Eos Absolute 0.29 [0.00-0.50] (05/26/17 7:27 AM) Baso Absolute 0.05 [0.00-0.20] (05/26/17 7:27 AM) Nucleated RBC 0.0 /100 WBC Automated [0 /100 (05/26/17 7:27 AM) WBC] Differential Manual *ABN* (05/22/17 11:25 AM) Chemistry Most recent to 1 oldest [Reference Range]: Sodium Lvl [136-144 137 mEq/L mEq/L] (05/26/17 7:27 AM) Potassium Lvl 3.8 mEq/L [3.6-5.1 mEq/L] (05/26/17 7:27 AM) Chloride [99-109 98 mEq/L mEq/L] *LOW* (05/26/17 7:27 AM) CO2 [22-32 mEq/L] 31 mEq/L (05/26/17 7:27 AM) AGAP [3-20 mEq/L] 8 mEq/L (05/26/17 7:27 AM) BUN [4-20 mg/dL] 15 mg/dL (05/26/17 7:27 AM) Glucose Lvl [70-100 83 mg/dL mg/dL] (05/26/17 7:27 AM) Creatinine Lvl 0.84 mg/dL [0.64-1.27 mg/dL] (05/26/17 7:27 AM) eGFR [>60 mL/min] >60 mL/min 1 (05/26/17 7:27 AM) Calcium Lvl 8.9 mg/dL [8.6-10.0 mg/dL] (05/26/17 7:27 AM) Albumin Lvl [3.5-4.8 3.1 gm/dL gm/dL] *LOW* (05/26/17 7:27 AM) Magnesium Lvl 2.2 mg/dL [1.8-2.5 mg/dL] (05/26/17 7:27 AM) Phosphorus [2.4-4.7 4.1 mg/dL 2 mg/dL] (05/26/17 7:27 AM) Blood Glucose, 80 mg/dL Capillary [70-100 (05/23/17 9:59 AM) mg/dL] 1Result Comment: Multiply eGFR results by 1.21 for race. 2Result Comment: High dosages of liposomal Amphotericin B (AmBisome) therapy or other drug preparations that use a liposomal envelope to facilitate drug delivery may cause falsely elevated results for phosphorus. Toxicology Most recent to 1 oldest [Reference Range]: U Amphetamine Scrn Positive *ABN* (05/22/17 12:34 PM) U Cocaine Scrn Negative (05/22/17 12:34 PM) U Cannab Scrn Negative (05/22/17 12:34 PM) U Opiate Scrn Negative (05/22/17 12:34 PM) U PCP Scrn Negative (05/22/17 12:34 PM) U Benzodiazepine Negative Scrn (05/22/17 12:34 PM) U Barbiturate Scrn Negative (05/22/17 12:34 PM) Methadone Lvl Negative (05/22/17 12:34 PM) Tricyclics Not Detected 1 (05/22/17 12:34 PM) 1Result Comment: Cut-off concentrations: Amphetamines: 1000 ng/mL Cocaine: 300 ng/mL Cannabinoid: 50 ng/mL Opiate: 300 ng/mL Phencyclidine (PCP): 25 ng/mL Benzodiazepine: 200 ng/mL Barbiturate: 200 ng/mL Methadone: 300 ng/mL Tricyclic: 300 ng/mL The urine drug screen assays are qualitative screens. A more specific GC/MS method must be performed to obtain a confirmed analytical result. Unconfirmed screening results must not be used for non-medical purposes(e.g. employment or legal testing) Microbiology Reports TEST: Wound Culture and Smear STATUS: Auth (Verified) BODY SITE: SOURCE: Wound-Surgical, collected in [place] COLLECTED DATE/TIME: 05/23/17 12:07 PM Gram Smear No white blood cells No microorganisms observed OIF=Oil Immersion Field LPF=Low Power Field TEST: Wound Culture and Smear STATUS: Auth (Verified) BODY SITE: SOURCE: Wound-Surgical, collected in OR COLLECTED DATE/TIME: 05/23/17 12:07 PM Wound Culture and Smear Eikenella corrodens Small amount Susceptibility not performed Streptococcus viridans group Scant amount Susceptibility not performed ORGANISM:Eikenella corrodens ORGANISM:Streptococcus viridans group TEST: Anaerobic Culture STATUS: Auth (Verified) BODY SITE: SOURCE: Wound-Surgical, collected in OR COLLECTED DATE/TIME: 05/23/17 12:07 PM Anaerobic Culture No anaerobes isolated TEST: Anaerobic Culture STATUS: Auth (Verified) BODY SITE: SOURCE: Wound-Surgical, collected in [place] COLLECTED DATE/TIME: 05/23/17 12:07 PM Anaerobic Culture Veillonella species Small amount Susceptibility not performed ORGANISM:Veillonella species TEST: Fungus Culture & Calcofluor White Stain STATUS: Order in Progress BODY SITE: SOURCE: Wound-Surgical, collected in OR COLLECTED DATE/TIME: 05/23/17 12:07 PM Fungus Culture Culture in progress TEST: Fungus Culture & Calcofluor White Stain STATUS: Order in Progress BODY SITE: SOURCE: Wound-Surgical, collected in OR COLLECTED DATE/TIME: 05/23/17 12:07 PM Calcofluor White Stain No fungal elements seen TEST: Wound Culture and Smear STATUS: Auth (Verified) BODY SITE: Hand, Left SOURCE: Wound COLLECTED DATE/TIME: 05/22/17 11:42 AM Wound Culture Normal skin/oral marcellus present TEST: Anaerobic Culture STATUS: Auth (Verified) BODY SITE: Hand, Left SOURCE: Wound COLLECTED DATE/TIME: 05/22/17 11:42 AM Anaerobic Culture Mixed anaerobic skin/oral marcellus isolated No further workup will be performed on this culture. Immunizations No data available for this section Procedures Procedure Date Related Diagnosis Body Site Debridement Irrigation Wound (Left)1 05/23/17 Incision and Drainage Upper Extremity (Left)2 7 1auto-populated from documented surgical case 2auto-populated from documented surgical case Social History Social History Type Response Smoking Status 5-9 cigarettes (between 1/4 to 1/2 pack)/day in last 30 days; Type: Cigarettes; Tobacco use per day: Betwee n 1/4 pack and 1/2 pack; Number of years: 30; entered on: 05/12/17 Assessment and Plan No data available for this section
--- OUTSIDE RECORDS SUMMARY | 2019-07-28 22:15 | XMS REPORT | Referral Summary ---
Author Author [facility] Organization [facility] Address Unknown Phone Unavailable Care Team Providers Care Arborer Name Role Phone Homar Smiley PCP Encounter VC Date(s): 05/12/17 - 05/17/17 [facility] [address] [place] [address] Discharge Disposition: 01-Home or Self Care Attending Physician: Alxe Allen MD Admitting Physician: Lizbeth Gee MD Vital Signs Most recent to 1 2 oldest [Reference Range]: Temperature Oral 36.8 degC 36.9 degC [35.8-37.3 degC] (05/17/17 4:00 PM) (05/17/17 4:00 PM) Temperature Skin 37.1 degC [36-37 degC] *HI* (05/14/17 9:45 AM) Temperature Temporal 36 degC Artery [36.3-37.8 *LOW* degC] (05/14/17 12:16 PM) Peripheral Pulse 80 bpm 80 bpm Rate [60-100 bpm] (05/17/17 4:00 PM) (05/17/17 4:00 PM) Heart Rate Monitored 113 bpm [60-100 bpm] *HI* (05/14/17 8:00 PM) Respiratory Rate 18 br/min 18 br/min [14-20 br/min] (05/17/17 4:00 PM) (05/17/17 4:00 PM) Blood Pressure 132/80 mmHg 145/80 mmHg [90-140/60-90 mmHg] (05/17/17 4:00 PM) *HI* (05/17/17 4:00 PM) Mean Arterial 89 mmHg Pressure, Cuff (05/15/17 4:00 PM) SpO2 96 % 96 % (05/17/17 4:00 PM) (05/17/17 4:00 PM) Problem List Condition Effective Dates Status Health Status Informan t Acute Active pain(Confirmed) Impaired skin Active integrity(Confirmed) 1 1Problem added automatically by system based on [...] tablet 500 mg 1 tabs, Oral, BID, X 14 days, # 28 tabs, 0 Refill(s) Start Date: 05/17/17 Stop Date: 05/31/17 Status: Ordered citalopram 20 mg oral tablet 20 mg 1 tabs, Oral, Daily, # 30 tabs, 0 Refill(s) Start Date: 05/12/17 Status: Ordered Flagyl 500 mg oral tablet 500 mg 1 tabs, Oral, q12hr, X 14 days, # 28 tabs, 0 Refill(s), Pharmacy: [id number], 1 tabs Oral [...] Refill(s) Start Date: 05/12/17 Status: Ordered Results Hematology Most recent to 1 oldest [Reference Range]: WBC [4.8-10.8 9.4 10*3/uL 10*3/uL] (05/17/17 6:03 AM) RBC [4.60-6.20] 5.13 (05/17/17 6:03 AM) Hgb [14.0-18.0 14.9 gm/dL gm/dL] (05/17/17 6:03 AM) Hct [42.0-52.0 %] 45.4 % (05/17/17 6:03 AM) MCV [82.0-99.0 fL] 88.5 fL (05/17/17 6:03 AM) MCH [27.0-32.0 pg] 29.0 pg (05/17/17 6:03 AM) MCHC [32.0-36.0 32.8 gm/dL gm/dL] (05/17/17 6:03 AM) RDW [11.5-14.5 %] 13.5 % (05/17/17 6:03 AM) Platelet [150-400 283 10*3/uL 10*3/uL] (05/17/17 6:03 AM) MPV [9.4-12.3 fL] 9.3 fL *LOW* (05/17/17 6:03 AM) Immature 0.2 % Granulocytes (05/16/17 6:01 AM) [0.0-1.0 %] Neutrophils [51-75 63 % %] (05/16/17 6:01 AM) Lymphocytes [20-46 25 % %] (05/16/17 6:01 AM) Monocytes [4-11 %] 10 % (05/16/17 6:01 AM) Eosinophils [0-4 %] 2 % (05/16/17 6:01 AM) Basophils [0-2 %] 0 % (05/16/17 6:01 AM) Neutro Absolute 7.63 [1.90-7.00] *HI* (05/16/17 6:01 AM) Lymph Absolute 3.02 [0.80-3.30] (05/16/17 6:01 AM) [place] Absolute 1.23 [0.30-1.00] *HI* (05/16/17 6:01 AM) Eos Absolute 0.25 [0.00-0.50] (05/16/17 6:01 AM) Baso Absolute 0.05 [0.00-0.20] (05/16/17 6:01 AM) Nucleated RBC 0.0 /100 WBC Automated [0 /100 (05/16/17 6:01 AM) WBC] Sed Rate [0-15] 3 (05/12/17 9:04 PM) Chemistry Most recent to 1 oldest [Reference Range]: Sodium Lvl [136-144 136 mEq/L mEq/L] (05/17/17 6:03 AM) Potassium Lvl 3.8 mEq/L [3.6-5.1 mEq/L] (05/17/17 6:03 AM) Chloride [99-109 102 mEq/L mEq/L] (05/17/17 6:03 AM) CO2 [22-32 mEq/L] 28 mEq/L (05/17/17 6:03 AM) AGAP [3-20 mEq/L] 6 mEq/L (05/17/17 6:03 AM) BUN [4-20 mg/dL] 10 mg/dL (05/17/17 6:03 AM) Glucose Lvl [70-100 85 mg/dL mg/dL] (05/17/17 6:03 AM) Creatinine Lvl 0.83 mg/dL [0.64-1.27 mg/dL] (05/17/17 6:03 AM) eGFR [>60 mL/min] >60 mL/min 1 (05/17/17 6:03 AM) Calcium Lvl 8.2 mg/dL [8.6-10.0 mg/dL] *LOW* (05/17/17 6:03 AM) Albumin Lvl [3.5-4.8 2.7 gm/dL gm/dL] *LOW* (05/16/17 6:01 AM) Total Protein 6.9 gm/dL [6.1-7.9 gm/dL] (05/13/17 7:44 AM) Globulin [1.9-4.3 3.7 gm/dL gm/dL] (05/13/17 7:44 AM) ALT [17-63 U/L] 22 U/L (05/13/17 7:44 AM) AST [15-41 U/L] 19 U/L (05/13/17 7:44 AM) Alk Phos [26-104 123 U/L U/L] *HI* (05/13/17 7:44 AM) Bili Total [0.2-1.2 0.8 mg/dL 2 mg/dL] (05/13/17 7:44 AM) Magnesium Lvl 1.8 mg/dL [1.8-2.5 mg/dL] (05/16/17 6:01 AM) Phosphorus [2.4-4.7 4.1 mg/dL 3 mg/dL] (05/16/17 6:01 AM) 1Result Comment: Multiply eGFR results by 1.21 for race. 2Result Comment: Naproxen, specifically the metabolite O-desmethylnaproxen, may cause spurious elevation in Total Bilirubin levels. 3Result Comment: High dosages of liposomal Amphotericin B (AmBisome) therapy or other drug preparations that use a liposomal envelope to facilitate drug delivery may cause falsely elevated results for phosphorus. Therapeutic Drug Monitoring Most recent to 1 oldest [Reference Range]: Vancomycin Tr 8.2 ug/mL 1 [10.0-20.0 ug/mL] *LOW* (05/16/17 8:35 AM) 1Result Comment: Trough vancomycin concentrations of 15-20 ug/mL are recommended for complicated infections such as bacteremia, osteomyelitis, endocarditis, meningitis, and hospital acquired pneumonia. Toxicology Most recent to 1 oldest [Reference Range]: U Amphetamine Scrn Positive *ABN* (05/13/17 1:00 AM) U Cocaine Scrn Negative (05/13/17 1:00 AM) U Cannab Scrn Negative (05/13/17 1:00 AM) U Opiate Scrn Positive *ABN* (05/13/17 1:00 AM) U PCP Scrn Negative (05/13/17 1:00 AM) U Benzodiazepine Negative Scrn (05/13/17 1:00 AM) U Barbiturate Scrn Negative (05/13/17 1:00 AM) Methadone Lvl Negative (05/13/17 1:00 AM) Tricyclics Not Detected 1 (05/13/17 1:00 AM) 1Result Comment: Cut-off concentrations: Amphetamines: 1000 ng/mL [...] Reports TEST: Wound Culture and Smear STATUS: Order in Progress BODY SITE: SOURCE: Wound-Surgical, collected in OR COLLECTED DATE/TIME: 05/14/17 11:55 AM Gram Smear Few (1-5/OIF) white blood cells Rare (0-1/OIF) gram negative bacilli OIF=Oil Immersion Field LPF=Low Power Field ORGANISM:Haemophilus parainfluenzae ORGANISM:Eikenella corrodens TEST: Acid Fast Bacilli Culture and Smear STATUS: Order in Progress BODY SITE: SOURCE: Wound-Surgical, collected in [place] COLLECTED DATE/TIME: 05/14/17 11:55 AM Acid Fast Smear Only No acid fast bacilli seen TEST: Anaerobic Culture STATUS: Order in Progress BODY SITE: SOURCE: Wound-Surgical, collected in [place] COLLECTED DATE/TIME: 05/14/17 11:55 AM Anaerobic Culture Prevotella species presumptive ID, Small amount Susceptibility not performed ORGANISM:Prevotella species TEST: Fungus Culture & Calcofluor White Stain STATUS: Order in Progress BODY SITE: SOURCE: Wound-Surgical, collected in [place] COLLECTED DATE/TIME: 05/14/17 11:55 AM Fungus Culture Culture in progress Immunizations No data available for this section [...]
--- OUTSIDE RECORDS SUMMARY | 2019-07-28 22:16 | XMS REPORT ---
Author Author Corona Preston Organization [employer] Address Unknown Phone Unavailable Care Team Providers Care Light Industrial Name Role Phone Radha Preston CP Unavailable Allergies, Adverse Reactions, Alerts Substance Reaction Event Type Penicillin G Benzathine Info Not Available Drug Allergy Problems Problem Type Condition Code Onset Dates Condition Statu s Assessment History of hepatitis C Z86.19 Activ e Assessment Depression F32.9 Active Assessment Nausea and vomiting R11.2 Active Medications Medication Code System Code Instructions Start Date End Date Status Dosage Promethazine HCl [facility] [address]-46 25 MG Orally ev nichole 6 hours prn nausea and vomiting Jul 15, 2015 Jul 22, 2015 as directed Ranitidine HCl [facility] [address]-13 150 MG Orally Twice a day Jul 15, 016 1 capsule Procedures Procedure Coding System Code Date COMPLETE CBC WAUTO DIFF WBC CPT-4 86301 Jul 15, 2015 COMPREHEN METABOLIC PANEL CPT-4 92598 Jul ROUTINE VENIPUNCTURE CPT-4 45980 Jul 15, 6 OFFICE VISIT EST PATIENT LEVEL 4 CPT-4 07029 Jul 15, 2015 HEPATITIS C REVRS TRNSCRPJ CPT-4 05735 Jul ASSAY OF LIPASE CPT-4 31580 Jul 15, 2015 ASSAY OF AMYLASE CPT-4 50677 Jul 15, 2015 ASSAY THYROID STIM HORMONE CPT-4 37814 Jul IMMUNOASSAY,INFECTIOUS AGENT CPT-4 96564 Jul 15, 2015 Vital Signs Date/Time: Jul 15, 2015 BMI 23.29 Index Weight 167.0 lbs Height 71 in Blood Pressure Diastolic 72 mm Hg Blood Pressure Systolic 132 mm Hg Cardiac Monitoring Heart Rate 76 /min Temperature 97.8 F Oximetry 97 % Respiratory Rate 20 /min Results Name Result Date Reference Range Unit Abnormali ty Flag eGFR ----eGFR >60 [id number] >60 mL/min Venipuncture Summary Purpose [employer] Submission
--- OUTSIDE RECORDS SUMMARY | 2019-07-28 22:16 | XMS REPORT ---
Author Author Corona Preston Organization [employer] Address Unknown Phone Unavailable Care Team Providers Care Laundry Room Attendant Name Role Phone Radha Preston CP Unavailable Allergies No Known Allergies Problems Problem Type Condition Code Onset Dates Condition Statu s Problem Hepatitis C infection B19.20 Active Problem Helicobacter pylori infection A04.8 Active Medications No Known Medications Results No Known Results Summary Purpose [employer] Submission
--- OUTSIDE RECORDS SUMMARY | 2019-07-28 22:16 | XMS REPORT ---
Author Author Corona Smiley Organization [facility] In c Address [address] [place], [place] [id number] Care Team Providers Care Stretcher Helper Name Role Phone BaljitRenanHomar Unavailable PROBLEMS Type Condition ICD9-CM Code LIJ50-EQ Code Onset Dates Condition S tatus SNOMED Code Problem History of TIA (transient ischemic attack) Z86.73 Active 235112753 Problem Transient cerebral ischemia, unspecified type G45. 9 Active 514153652 Problem Hypertension, unspecified type I10 Active 34259004 Problem Anxiety F41.9 Active 10410261 Problem Helicobacter pylori infection A04.8 Active 6998008 Problem Hepatitis C infection B19.20 Active 10894711 ALLERGIES No Information ENCOUNTERS Encounter Location Date Diagnosis [facility] [address] [employer] [place] [address] Jun, [facility] [address] [employer] [place] [address] Apr, Hypertension, unspecified type I10 [facility] [employer] [place] [address] [employer] [place] [employer] [place] [address] Feb, [facility] [address] [employer] [place] [employer] [place] [address] Jan, Hypertension, unspecified type I10 ; Anx iety F41.9 and History of TIA (transient ischemic attack) Z86.73 [facility] [address] [employer] [place] [employer] [place] [address] Jan, Hypertension, unspecified type I10 ; Com pulsive tobacco user syndrome F17.200 and Transient cerebral ischemia, unspecified type G45.[address] [facility] [place] [address] [employer] [place], [employer] [place] [address] Jul, [facility] [employer] [address] [place] [address] Jul, Helicobacter pylori infection A04.8 and Hepatitis C infection B19.[address] [facility] [address] [place] [address] Jul, [facility] [address] [place] [address] Jul, Depressed F32.[address] [facility] [address] [place] [address] Jul, Nausea and vomiting R11.2 ; History of h epatitis C Z86.19 and Depression F32.[address] [facility] [address] [place] [address] Feb, Routine general medical examination at [facility] V70.0 IMMUNIZATIONS No Known Immunizations SOCIAL HISTORY Never Assessed REASON FOR VISIT no show PLAN OF CARE VITAL SIGNS MEDICATIONS Unknown Medications RESULTS No Results PROCEDURES No Known procedures INSTRUCTIONS MEDICATIONS ADMINISTERED No Known Medications MEDICAL (GENERAL) HISTORY Type Description Date Medical History High blood pressure Medical History Hepatitis C Medical History Urinary incontinence Medical History Vision problem Medical History Anxiety Medical History Migraine Medical History History of TIA (transient ischemic attac k) Medical History Transient cerebral ischemia, unspecified type Medical History Transient cerebral ischemia, unspecified type Hospitalization History Hospital d/t kidney failure 03/2015 Hospitalization History TIA 12/2016
--- OUTSIDE RECORDS SUMMARY | 2019-07-28 22:16 | XMS REPORT ---
Author Author Corona Reece Organization [employer] Address Unknown Phone Unavailable Care Team Providers Care Tubular Products Fabricator Name Role Phone Heather Reece CP Unavailable Allergies No Known Allergies Problems Problem Type Condition ICD-9 Code Onset Dates Condition Statu s Assessment Routine general medical examination at [facility] V70.0 Active Medications No Known Medications Procedures Procedure Coding System Code Date Collection of drug screen CPT-4 CHERISE Feb Results Name Result Date Reference Range Unit Abnormali ty Flag Collection of drug screen Summary Purpose [employer] Submission
== END 2019-07-21 01:09 | disposition home or self-care (01) ==
LOC: ER 21:35
DX: R07.89 Other chest pain (principal); F17.210 Nicotine dependence, cigarettes, uncomplicated; F17.220 Nicotine dependence, chewing tobacco, uncomplicated; Z86.73 Personal history of transient ischemic attack (TIA), and cerebral infarction without residual deficits; Z88.0 Allergy status to penicillin
CPT/HCPCS: 36415; 71045; 80053; 80306; 81000; 83735; 83874; 84484; 85025; 85610; 85730; 87804; 93005; 93041; 96374